=== PATIENT | male | born 1980 | race Caucasian/White ===

== ENCOUNTER 2016-10-07 02:57 | Emergency (ER) | payer OTHER ==
[~2016-10-07] VITALS: Ht 182.9 cm; Wt 115.9 kg
[2016-10-07 03:01] VITALS: BP 130/85; PULSE 68; RESP 16; O2SAT 97
--- NOTE | 2016-10-07 03:25 | ED.REPORT ---
HPI-General Illness Date of Service October 07, 2016 ED Provider: Colton Collins MD The pt is a 36 y/o male w/ a hx of asthma presenting to the ED complaining of SOB onset 5 days ago. He is also experiencing a productive cough, w/ yellow sputum, and vomiting after eating. Denies fever or seasonal allergies. He also quit smoking a year and a half ago. Nursing Notes Stated Complaint: DIFFICULTY BREATHING Chief Complaint: Respiratory Complaints Nursing Notes Reviewed: Yes Allergies: Coded Allergies: aspirin (Verified Allergy, Intermediate, FACIAL SWELLING, 10/07/16) Scheduled Prednisone (PredniSONE) 20 Mg Tablet 60 MG PO DAILY General Time Seen by MD: 03:24 Chief Complaint Other (Shortness of breath) Hx Obtained From: Patient Arrived By: Walk-in Sudden in Onset?: Yes Onset Occurred: 5 days ago Symptom Duration: Since onset Recent Healthcare: No recent doctor visit, No recent hospitalization Past Medical History Past Medical History Asthma Past Surgical History Hernia repair Smoking History Former Smoker Ambulatory Status Independent Review of Systems Productive cough, yellow Full Review of Systems Constitutional: Denies: Fever Respiratory: Reports: Shortness of breath Complete sys rev & neg: except as marked. Physical Exam Vital Signs Vital Signs Date Time Temp Pulse Resp B/P Pulse Ox O2 Delivery O2 Flow Rate FiO2 10/07/16 04:43 37.4 78 138/80 97 Room Air 10/07/16 04:29 88 16 98 Room Air 10/07/16 03:01 36.7 68 16 130/85 97 Initial VS: Reviewed General/Constitutional: Awake, Alert ENT: Atraumatic, Airway patent, Mucous membranes moist Slight bulging of TMs Poor dentition Multiple carious teeth Respiratory / Chest: Breath sounds = bilat, No respiratory distress, No rales, No rhonchi Wheezing / Retractions: Positive: Wheezing inspiratory Inspiratory cough Interpretation & Diagnostics X-Ray Chest Interpretation Chest Xray Interpretation: Impression: Normal Interpretation / Wet Read by: Wet read ED physician Re-Eval/Medical Decision Med Decision/Clinical Course 36-year-old presents with more or less chronic cough and increasing shortness of breath and wheeze. He is definitely no bronchospastic cough with call vomiting exhibited. Better after nebs here and provided with an albuterol puffer spacer. Received twenty of Decadron here. Plan for a five day course of prednisone to follow. X-rays negative for infiltrate and no indication of bacterial infection, therefore no indication for IV or by mouth antibiotics. Discharged home in stable condition. Source of Hx: Old records Time of Eval: 04:15 Re-Evaluation/Progress Note: Pt rechecked. Informed pt of plan for treatment. Pt understands and agrees with plan for treatment. F/U instructions and RTER warnings given. All questions addressed. Counseled Regarding: Diagnosis, Lab results, Need for follow-up, When/why to return to ED Discharge & Departure Primary Impression: Asthma Asthma severity: unspecified severity Asthma complication type: uncomplicated Qualified Code: J45.909 - Unspecified asthma, uncomplicated Disposition: Home Discharge Condition All VS Reviewed: Yes Condition: Improved Additional Instructions: Take prednisone three tablets daily for five days. Albuterol two puffs with spacer every 3-4 hours as needed for cough. There is no need for antibiotics at this point. The only cause side effects, but not improve your current problems. Follow-up with your physician in the office. Return if worsening despite treatment. Referrals: Catrachito Rodgers MD (PCP) Scribe Attestation Portions of this note were transcribed by Antoni Barrientos. I, Dr. Collins personally performed the history, physical exam and medical decision-making; I reviewed and confirmed the accuracy of the information in the transcribed note. Signed by : Kevin Lyle, 10/07/16 and 0425. copies to: Catrachito Rodgers MD, Christopher W MD October 07, 2016 03:25 Antoni Barrientos October 07, 2016 04:31
[2016-10-07] MEDS ORDERED: Albuterol-Ipratropium 3 mL Inhalation Solution NEB ONE (03:35)
[2016-10-07] MEDS ORDERED: Albuterol HFA 200 Puff Inhaler (Vent Pts Only) INHALATION PRN (03:35)
[2016-10-07] MEDS ORDERED: Dexamethasone 20 mg/2 mL Oral Solution PO ONE (03:35)
[2016-10-07] MEDS ORDERED: Albuterol 2.5 mg/3 mL Inhalation Solution NEB ONE (03:35)
[2016-10-07] MEDS ORDERED: PRE20 PO (04:20)
[2016-10-07 04:29] VITALS: PULSE 88; RESP 16; O2SAT 98
[2016-10-07 04:43] VITALS: BP 138/80; PULSE 78; O2SAT 97
--- NOTE | 2016-10-07 07:58 | DRSVH ---
PROCEDURE: X-RAY CHEST, TWO VIEWS ([id number]) INDICATIONS: cough TECHNIQUE: 2 views of the chest were acquired. COMPARISON: None. FINDINGS: Surgical changes and devices: None. Lungs and pleura: No pleural effusions or pneumothorax. Lungs are clear. Mediastinum: Mediastinal contours are normal. Heart size is normal. Bones and chest wall: No suspicious bony abnormalities. Soft tissues appear unremarkable. IMPRESSION: No acute process. Dictated by: Jackie Holt M.D. on 10/07/2016 at 7:56 Approved by: Jackie Holt M.D. on 10/07/2016 at 7:56
== END 2016-10-07 04:48 | disposition home or self-care (01) ==
LOC: SED 02:57
DX: J45.909 Unspecified asthma, uncomplicated (principal); R11.10 Vomiting, unspecified; Z87.891 Personal history of nicotine dependence; Z88.6 Allergy status to analgesic agent
CPT/HCPCS: 71020; 94640; 94664; 99284; J7613; J7620